=== PATIENT | female | born 1960 | race Caucasian/White ===

== ENCOUNTER → 2016-09-16 | Outpatient (CLI) | payer BC ==
[2015-04-21 19:54] VITALS: BP 111/71
--- NOTE | 2016-09-16 15:38 | KCIC ---
PROCEDURE PA and lateral chest radiographs 09/16/2016 HISTORY Shortness of breath, fatigue and low oxygen saturation. FINDINGS PA and lateral digital radiographs of the chest were obtained. The cardiac and mediastinal silhouettes are within normal limits in size and configuration. No acute pulmonary infiltrate is seen. No pleural effusion or pneumothorax is noted. Mild degenerative changes are seen involving the thoracic spine and both shoulders. IMPRESSION No acute pulmonary infiltrate is seen. Electronically signed by: Bhavesh Hahn MD (September 16, 2016 15:37:15)
== END | disposition home or self-care (01) ==
LOC: KCIC 15:06
PROVIDERS: ATTEND Obstetrics & Gynecology
DX: R06.02 Shortness of breath (principal); R53.83 Other fatigue; R42 Dizziness and giddiness
CPT/HCPCS: 71020

== ENCOUNTER 2017-03-21 14:02 | Emergency (ER) | payer BC ==
[~2017-03-21] VITALS: Ht 167.6 cm; Wt 72.6 kg
[2017-03-21] MEDS ORDERED: IV NORMAL SALINE 1000ML BAG 1,000 ML IV SCH (14:22)
[2017-03-21] MEDS ORDERED: MORPHINE SULFATE 2 MG/ML DISP.SYRIN. IV/SQ PRN (14:30)
[2017-03-21 14:31] LABS: BASO # 0.1 x10^3/uL (0.0-0.2); BASO % 1 % (0-3); EOS % 1 % (0-3); HEMATOCRIT 42.9 % (36.0-47.0); HEMOGLOBIN 14.2 g/dL (12.0-15.5); LYMPH # 2.7 x10^3/uL (1.0-4.8); LYMPH % 26 % (24-48); MEAN CORPUSCULAR HEMOGLOBIN 29 pg (25-35); MEAN CORPUSCULAR HGB CONC 33 g/dL (31-37); MEAN CORPUSCULAR VOLUME 89 fL (79-100); MONO % 5 % (0-9); NEUT % 68 % (31-73); PLATELET COUNT 296 x10^3/uL (140-400); RED BLOOD COUNT 4.84 x10^6/uL (3.50-5.40); RED CELL DISTRIBUTION WIDTH 13.8 % (11.5-14.5); WHITE BLOOD COUNT 10.5 x10^3/uL (4.0-11.0)
--- NOTE | 2017-03-21 14:32 | PHYS DOC ---
Past Medical History Past Medical History: Diverticulitis Past Surgical History: Hysterectomy, Other Additional Past Surgical Histo: COLONOSCOPY 2010, ABDOMINOPLASTY Alcohol Use: Rarely Drug Use: None Adult General Chief Complaint Chief Complaint: FLANK PAIN HPI HPI Patient is a 56 year old female who presents with left lower back pain. 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 Started flaring up Wednesday has been getting worse. She's been taking Aleve and yesterday she tried a [place] and really hasn't helped. She denies any use chills nausea or vomiting, any dysuria or constipation. She denies any numbness or weakness in her legs. She states it feels like it does go down the back of her leg sometimes. But she denies that it made worse with flexion of the hip or any different when she tries to walk up steps. She states she has a history of kidney stones and wonders if this could be a kidney stone causing this. Review of Systems Review of Systems Constitutional: Denies fever or chills [] Eyes: Denies change in visual acuity, redness, or eye pain [] HENT: Denies nasal congestion or sore throat [] Respiratory: Denies cough or shortness of breath [] Cardiovascular: No additional information not addressed in HPI [] GI: Denies abdominal pain, nausea, vomiting, bloody stools or diarrhea [] : Denies dysuria or hematuria [] Musculoskeletal: Denies back pain or joint pain [] Integument: Denies rash or skin lesions [] Neurologic: Denies headache, focal weakness or sensory changes [] Endocrine: Denies polyuria or polydipsia [] All other systems were reviewed and found to be within normal limits, except as documented in this note. Current Medications Current Medications Current Medications Medications (Trade) Dose Ordered Sig/Sudhakar Start Time Stop Time Status Last Admin Dose Admin Diazepam (Valium) 5 mg 1X ONCE 03/21/17 18:00 03/21/17 18:01 UNV Morphine Sulfate 2 mg PRN Q15MIN PRN 03/21/17 14:30 03/22/17 14:29 03/21/17 14:45 2 MG Ondansetron HCl (Zofran) 4 mg 1X ONCE 03/21/17 15:00 03/21/17 15:01 DC 03/21/17 14:44 4 MG Sodium Chloride 1,000 ml @ 1,000 mls/hr Q1H 03/21/17 14:22 03/21/17 15:21 DC 03/21/17 14:45 1,000 MLS/HR Allergies Allergies Allergies Coded Allergies Type Severity Reaction Last Updated Verified No Known Drug Allergies 04/21/15 No Physical Exam Physical Exam Constitutional: Well developed, well nourished, no acute distress, non-toxic appearance. [] HENT: Normocephalic, atraumatic, bilateral external ears normal, oropharynx moist, no oral exudates, nose normal. [] Eyes: PERRLA, EOMI, conjunctiva normal, no discharge. [] Neck: Normal range of motion, no tenderness, supple, no stridor. [] Cardiovascular:Heart rate regular rhythm, no murmur [] Lungs & Thorax: Bilateral breath sounds clear to auscultation [] Abdomen: Bowel sounds normal, soft, no tenderness, no masses, no pulsatile masses. [] Skin: Warm, dry, no erythema, no rash. [] Back: No midline tenderness, no CVA tenderness. Tender to palpation over the left paraspinal lumbar/buttock's area, full range of motion of left hip without any pain, strength leg raise on the left negative. Strength 5 out of 5 with hip flexion, knee extension and flexion, ankle extension and flexion Extremities: No tenderness, no cyanosis, no clubbing, ROM intact, no edema. [] Neurologic: Alert and oriented X 3, normal motor function, normal sensory function, no focal deficits noted. [] Psychologic: Affect normal, judgement normal, mood normal. [] Current Patient Data Vital Signs Vital Signs Date Time Temp Pulse Resp B/P (MAP) Pulse Ox O2 Delivery O2 Flow Rate FiO2 03/21/17 16:00 74 18 108/66 (80) 97 Room Air 03/21/17 14:13 97.9 97.9 Lab Values Laboratory Tests Test 03/21/17 14:15 White Blood Count 10.5 x10^3/uL (4.0-11.0) Red Blood Count 4.84 x10^6/uL (3.50-5.40) Hemoglobin 14.2 g/dL (12.0-15.5) Hematocrit 42.9 % (36.0-47.0) Mean Corpuscular Volume 89 fL (79-100) Mean Corpuscular Hemoglobin 29 pg (25-35) Mean Corpuscular Hemoglobin Concent 33 g/dL (31-37) Red Cell Distribution Width 13.8 % (11.5-14.5) Platelet Count 296 x10^3/uL (140-400) Neutrophils (%) (Auto) 68 % (31-73) Lymphocytes (%) (Auto) 26 % (24-48) Monocytes (%) (Auto) 5 % (0-9) Eosinophils (%) (Auto) 1 % (0-3) Basophils (%) (Auto) 1 % (0-3) Neutrophils # (Auto) 7.2 x10^3uL (1.8-7.7) Lymphocytes # (Auto) 2.7 x10^3/uL (1.0-4.8) Monocytes # (Auto) 0.5 x10^3/uL (0.0-1.1) Eosinophils # (Auto) 0.0 x10^3/uL (0.0-0.7) Basophils # (Auto) 0.1 x10^3/uL (0.0-0.2) Prothrombin Time 12.4 SEC (11.7-14.0) Prothrombin Time INR 1.0 (0.8-1.1) PTT 34 SEC (24-38) Urine Collection Type Clean catch Urine Color Straw Urine Clarity Clear Urine pH 6.0 Urine Specific [place] 1.010 Urine Protein Negative mg/dL (NEG-TRACE) Urine Glucose (UA) Negative mg/dL (NEG) Urine Ketones (Stick) Negative mg/dL (NEG) Urine Blood Negative (NEG) Urine Nitrite Negative (NEG) Urine Bilirubin Negative (NEG) Urine Urobilinogen Dipstick 0.2 mg/dL (0.2 mg/dL) Urine Leukocyte Esterase Negative (NEG) Urine RBC 0 /HPF (0-2) Urine WBC Occ /HPF (0-4) Urine Squamous Epithelial Cells Many /LPF Urine Bacteria Many /HPF (0-FEW) Sodium Level 141 mmol/L (136-145) Potassium Level 3.6 mmol/L (3.5-5.1) Chloride Level 104 mmol/L (98-107) Carbon Dioxide Level 29 mmol/L (21-32) Anion Gap 8 (6-14) Blood Urea Nitrogen 22 mg/dL (7-20) H Creatinine 1.0 mg/dL (0.6-1.0) Estimated GFR (Cockcroft-Gault) 57.8 BUN/Creatinine Ratio 22 (6-20) H Glucose Level 95 mg/dL (70-99) Calcium Level 10.2 mg/dL (8.5-10.1) H Total Bilirubin 1.0 mg/dL (0.2-1.0) Aspartate Amino Transferase (AST) 23 U/L (15-37) Alanine Aminotransferase (ALT) 36 U/L (14-59) Alkaline Phosphatase 107 U/L (46-116) Total Protein 8.9 g/dL (6.4-8.2) H Albumin 4.7 g/dL (3.4-5.0) Albumin/Globulin Ratio 1.1 (1.0-1.7) Lipase 119 U/L (73-393) Urine Opiates Screen Neg (NEG) Urine Methadone Screen Neg (NEG) Urine Barbiturates Neg (NEG) Urine Phencyclidine Screen Neg (NEG) Urine Amphetamine/Methamphetamine Neg (NEG) Urine Benzodiazepines Screen Neg (NEG) Urine Cocaine Screen Neg (NEG) Urine Cannabinoids Screen Neg (NEG) Urine Ethyl Alcohol Neg (NEG) Laboratory Tests 03/21/17 14:15 Laboratory Tests 03/21/17 14:15 EKG EKG [] Radiology/Procedures Radiology/Procedures [facility] [address] [place], [place] [id number] IMAGING REPORT Signed PATIENT: MILLIE TATE ACCOUNT: [id number] : 1960 LOCATION: ER AGE: 56 SEX: F EXAM STATUS: REG ER ORD. PHYSICIAN: NAZANIN MEREDITH MD REASON: stone protocol PROCEDURE: CT ABDOMEN PELVIS WO CONTRAST PQRS Compliance Statement: One or more of the following individualized dose reduction techniques were utilized for this examination: 1. Automated exposure control 2. Adjustment of the mA and/or kV according to patient size 3. Use of iterative reconstruction technique CT ABDOMEN PELVIS WO CONTRAST Clinical Indication: Low back pain. History of stones. Comparison: None. Technique: Helical CT imaging of the abdomen and pelvis is performed without IV or oral contrast. Findings: The lung bases are clear. Cardiac size normal. Liver, gallbladder, spleen, pancreas, adrenal glands, and abdominal aorta caliber are normal. 2 mm nonobstructing calculus in the interpolar right kidney. There is a 3 mm nonobstructing calculus in the interpolar left kidney. There is no perinephric stranding or hydronephrosis. There is no ureteral calculus. Urinary bladder is not well-distended accentuating wall thickness. Stomach unremarkable. No dilated small bowel. There is sigmoid colon diverticulosis without inflammation. No colon wall thickening is identified. The appendix is normal. No abdominal adenopathy or free fluid. Uterus surgically absent. No pelvic free fluid. No acute bone abnormality. IMPRESSION: 1. No acute abdominal or pelvic abnormality. No obstructive uropathy. 2. There are small bilateral nonobstructing renal calculi. 3. Distal colon diverticulosis without evidence of diverticulitis. DICTATED and SIGNED BY: GRANT FRIAS MD DATE: 03/21/17 3112 CC: NAZANIN MEREDITH MD; LETI SHANE ~ Impressions: Left lumbar/hip muscle spasm Course & Med Decision Making Course & Med Decision Making Pertinent Labs and Imaging studies reviewed. (See chart for details) Presented with left hip/flank pain. CT scan does not show any acute abnormalities. Labs also nonacute. She initially received morphine was still having pain. She felt better with IV Valium. She is neurologically intact. She' s being discharged home with a diagnosis of muscle spasm and Valium. Return precautions given. Her and her is agreeable plan being discharged in stable condition at this time. This was specifically told to have any weakness numbness foot drop urinary incontinence bowel or bladder issues to return back to ER immediately. 1748: Upon discharge and patient she states that she still having significant pain and she is requesting narcotic pain medicines and Valium. She still has her IV in place I told her we give another 5 mg Valium and see if this will help her get home she was sitting at her prescription filled and start using her TENS unit and other [id number]-jei-comglbm remedies for her muscle spasm. Dragon Disclaimer Dragon Disclaimer This electronic medical record was generated, in whole or in part, using a voice recognition dictation system. Departure Departure Impression: Primary Impression: Muscle spasm Disposition: 01 HOME, SELF-CARE Condition: STABLE Referrals: LETI SHANE (PCP) Patient Instructions: Muscle Cramps, [id number] Additional Instructions: You were seen today for muscle spasm in your left hip. The CAT scan did not show any acute abnormalities in your abdomen or pelvis. You'll be discharged home. You can use Valium as directed for muscle spasm. He can continue taking Advil 600 mg every 8 hours for next 3-5 days. Please drink a few extra glasses of water while taking this high dose of Advil. If you have weakness or numbness in your leg, have bowel or bladder dysfunction or incontinence or have any other concerns please return back to emergency department otherwise you need follow-up to primary care physician within the next 3-[address]. [address] or drink alcohol while taking Valium. Scripts Diazepam (VALIUM) 5 Mg Tablet 5 MG PO TID Y for MUSCLE SPASMS, #20 TAB Prov: NAZANIN MEREDITH MD 03/21/17 NAZANIN MEREDITH MD Mar 21, 2017 14:32
[2017-03-21 14:35] LABS: BILIRUBIN,URINE NEGATIVE (NEG); GLUCOSE,URINE NEGATIVE (NEG); NITRITE,URINE NEGATIVE (NEG); PROTEIN,URINE NEGATIVE (NEG-TRACE); UROBILINOGEN,URINE 0.2 mg/dL (0.2 mg/dL)
[2017-03-21 14:42] LABS: CALCIUM 10.2 mg/dL (8.5-10.1); GFR 57.8; POTASSIUM 3.6 mmol/L (3.5-5.1)
[2017-03-21 14:43] LABS: BARBITURATES NEG (NEG); BENZODIAZEPINES NEG (NEG); CANNABINOIDS NEG (NEG); COCAINE NEG (NEG); METHADONE NEG (NEG); OPIATES NEG (NEG); PHENCYCLIDINE NEG (NEG); PROTHROMBIN TIME PATIENT 12.4 SEC (11.7-14.0)
[2017-03-21 14:48] LABS: ALBUMIN 4.7 g/dL (3.4-5.0); ALBUMIN/GLOBULIN RATIO 1.1 (1.0-1.7); TOTAL PROTEIN 8.9 g/dL (6.4-8.2)
[2017-03-21 14:52] LABS: BACTERIA,URINE MANY /HPF (0-FEW); RBC,URINE 0 /HPF (0-2); SQUAMOUS EPITHELIAL CELL,UR MANY /LPF; WBC,URINE OCC /HPF (0-4)
[2017-03-21] MEDS ORDERED: ONDANSETRON PF 4 MG/2 ML VIAL. IV ONE (15:00)
--- NOTE | 2017-03-21 16:58 | RAD ---
PQRS Compliance Statement: One or more of the following individualized dose reduction techniques were utilized for this examination: 1. Automated exposure control 2. Adjustment of the mA and/or kV according to patient size 3. Use of iterative reconstruction technique CT ABDOMEN PELVIS WO CONTRAST Clinical Indication: Low back pain. History of stones. Comparison: None. Technique: Helical CT imaging of the abdomen and pelvis is performed without IV or oral contrast. Findings: The lung bases are clear. Cardiac size normal. Liver, gallbladder, spleen, pancreas, adrenal glands, and abdominal aorta caliber are normal. 2 mm nonobstructing calculus in the interpolar right kidney. There is a 3 mm nonobstructing calculus in the interpolar left kidney. There is no perinephric stranding or hydronephrosis. There is no ureteral calculus. Urinary bladder is not well-distended accentuating wall thickness. Stomach unremarkable. No dilated small bowel. There is sigmoid colon diverticulosis without inflammation. No colon wall thickening is identified. The appendix is normal. No abdominal adenopathy or free fluid. Uterus surgically absent. No pelvic free fluid. No acute bone abnormality. IMPRESSION: 1. No acute abdominal or pelvic abnormality. No obstructive uropathy. 2. There are small bilateral nonobstructing renal calculi. 3. Distal colon diverticulosis without evidence of diverticulitis.
[2017-03-21] MEDS ORDERED: DIAZ5TAB PO ×2 (17:31→17:57)
[2017-03-21 17:49] VITALS: BP 128/84
== END 2017-03-21 17:52 | disposition home or self-care (01) ==
LOC: ER 14:02
DX: M62.830 Muscle spasm of back (principal); Z90.710 Acquired absence of both cervix and uterus; Z87.442 Personal history of urinary calculi; Z98.890 Other specified postprocedural states
CPT/HCPCS: 36415; 74176; 80053; 80307; 81001; 83690; 85025; 85610; 85730; 87086; 96361; 96374; 96375; 96376; 99285; J2270; J2405; J3360; J7030; G0479

== ENCOUNTER 2017-03-24 13:33 | Emergency (ER) | payer BC, OTHER ==
[~2017-03-24] VITALS: Ht 167.6 cm; Wt 72.6 kg
[~2017-03-24 13:33] MED LIST: DIAZ5TAB PO
[2017-03-24 13:51] VITALS: BP 138/78
[2017-03-24] MEDS ORDERED: KETOROLAC 60 MG/2 ML INJ. IM ONE (14:15)
[2017-03-24] MEDS ORDERED: ORPHENADRINE CITRATE 60 MG/2 ML VIAL. IM ONE (14:15)
[2017-03-24] MEDS ORDERED: DEXAMETHASONE SOD PHOS 20 MG/5 ML VIAL. IM ONE (14:15)
[2017-03-24] MEDS ORDERED: HYDROmorphone 2 MG/ML VIAL IM ONE (14:15)
[2017-03-24] MEDS ORDERED: HYDR-971 PO (14:46)
[2017-03-24] MEDS ORDERED: METH4TAB2 PO (14:46)
--- NOTE | 2017-03-24 14:47 | PHYS DOC ---
Past Medical History Past Medical History: Diverticulitis Past Surgical History: Hysterectomy, Other Additional Past Surgical Histo: COLONOSCOPY 2010, ABDOMINOPLASTY Alcohol Use: Rarely Drug Use: None Adult General Chief Complaint Chief Complaint: BACK PAIN OR INJURY HPI HPI Patient is a 56 year old female who presents with moderate left low back pain radiating to the left lower extremity that began Wednesday last week after lifting a rim of paper at work patient denies any loss of bowel bladder function. She states she was sitting on the ED on Wednesday last week and they did a CT which was negative. She states this in the home with the provided him which she states is not helping with her pain. She is tearful. Review of Systems Review of Systems Constitutional: Denies fever or chills [] GI: Denies abdominal pain, nausea, vomiting, bloody stools or diarrhea [] : Denies dysuria or hematuria [] Musculoskeletal: Left low back pain radiating to the left lower extremity Integument: Denies rash or skin lesions [] Neurologic: Denies headache, focal weakness or sensory changes [] All other systems were reviewed and found to be within normal limits, except as documented in this note. Current Medications Current Medications Current Medications Medications (Trade) Dose Ordered Sig/Sudhakar Start Time Stop Time Status Last Admin Dose Admin Dexamethasone Sodium Phosphate (Decadron) 10 mg 1X ONCE 03/24/17 14:15 03/24/17 14:16 DC 03/24/17 14:16 10 MG Hydromorphone HCl (Dilaudid) 1 mg 1X ONCE 03/24/17 14:15 03/24/17 14:16 DC 03/24/17 14:16 1 MG Ketorolac Tromethamine (Toradol Im) 60 mg 1X ONCE 03/24/17 14:15 03/24/17 14:16 DC 03/24/17 14:17 60 MG Orphenadrine Citrate (Norflex) 60 mg 1X ONCE 03/24/17 14:15 03/24/17 14:16 DC 03/24/17 14:17 60 MG Allergies Allergies Allergies Coded Allergies Type Severity Reaction Last Updated Verified No Known Drug Allergies 04/21/15 No Physical Exam Physical Exam Constitutional: Well developed, well nourished, no acute distress, non-toxic appearance. [] Abdomen: Bowel sounds normal, soft, no tenderness, no masses, no pulsatile masses. [] Skin: Warm, dry, no erythema, no rash. [] Back: Diffuse paraspinal muscle tenderness the left lumbar spine, no midline lumbar spine tenderness, no CVA tenderness. [] Extremities: No tenderness, no cyanosis, no clubbing, ROM intact, no edema. [] Neurologic: Alert and oriented X 3, normal motor function, normal sensory function, no focal deficits noted. [] Psychologic: Patient is tearful Current Patient Data Vital Signs Vital Signs Date Time Temp Pulse Resp B/P (MAP) Pulse Ox O2 Delivery O2 Flow Rate FiO2 03/24/17 13:51 98.8 81 18 99 Room Air 98.8 EKG EKG [] Radiology/Procedures Radiology/Procedures [] Course & Med Decision Making Course & Med Decision Making Pertinent Labs and Imaging studies reviewed. (See chart for details) Patient is in the ED with low back pain radiating to the left lower extremity that began Wednesday last week after lifting a rim of paper. She was seen in the ED on Wednesday and was discharged with Valium. She states it's not helping. She is tearful in the ED. She was requesting we help her with the pain. She was given Norflex, Toradol, Solu-Medrol and Dilaudid some relief. She was discharged with Medrol Dosepak and 10 tablets of [place] and instructed to follow- up with the pain clinic as well as a PCP. Dragon Disclaimer Dragon Disclaimer This electronic medical record was generated, in whole or in part, using a voice recognition dictation system. Departure Departure Impression: Primary Impression: Lumbar strain Additional Impressions: Back pain Sciatica of left side Disposition: 01 HOME, SELF-CARE Condition: STABLE Referrals: LETI SHANE (PCP) TOMMY KHAN MD follow up with the pain clinic doctor on Wednesday Patient Instructions: Back Pain, Adult, Lumbosacral Strain, Sciatica Additional Instructions: You were seen with back pain with sciatica. Kindly follow-up with the pain clinic doctor provided as well as your own primary care doctor. Scripts Hydrocodone/Apap 5-325 (NORCO 5-325 TABLET) 1 Each Tablet 1-2 TAB PO Q4-6HRS Y for PAIN, #10 TAB Prov: MUTUNGA,LYN ORGANIZATIONAL DEVELOPMENT MANAGER 03/24/17 Methylprednisolone (MEDROL) 4 Mg Tab.ds.pk 1 PKG PO UD, #1 PKG Prov: LYN MOONEY ORGANIZATIONAL DEVELOPMENT MANAGER 03/24/17 Problem Qualifiers Primary Impression: Lumbar strain Encounter type: subsequent encounter Qualified Codes: S39.012D - Strain of muscle, fascia and tendon of lower back, subsequent encounter Additional Impressions: Back pain Back pain location: low back pain Chronicity: acute Back pain laterality: left Sciatica presence: with sciatica Sciatica laterality: sciatica of left side Qualified Codes: M54.42 - Lumbago with sciatica, left side LYN MOONEY ORGANIZATIONAL DEVELOPMENT MANAGER Mar 24, 2017 14:47
== END 2017-03-24 14:58 | disposition home or self-care (01) ==
LOC: ER 13:33
DX: S39.012A Strain of muscle, fascia and tendon of lower back, initial encounter (principal); M54.42 Lumbago with sciatica, left side; X58.XXXA Exposure to other specified factors, initial encounter; Y93.89 Activity, other specified; Y92.89 Other specified places as the place of occurrence of the external cause; Y99.2 Volunteer activity
CPT/HCPCS: 96372; 99284; J1100; J1170; J1885; J2360